=== PATIENT | male | born 1980 | race Caucasian/White ===

== ENCOUNTER 2016-06-27 01:00 | Emergency (ER) | payer OTHER, MEDICAID ==
[~2016-06-27] VITALS: Ht 170.2 cm; Wt 138.8 kg
[2016-06-27] MEDS ORDERED: METF10002 PO (01:53)
[2016-06-27] MEDS ORDERED: LISI-170 PO (01:54)
[2016-06-27] MEDS ORDERED: SIMV5TAB5 PO (01:54)
[2016-06-27] MEDS ORDERED: GLYB5TAB3 PO (01:54)
[2016-06-27] MEDS ORDERED: ONDANSETRON ODT 8 MG ONE (01:58)
[2016-06-27] MEDS ORDERED: PROCHLORPERAZINE 5 MG/ML, 2ML ONE (01:58)
[2016-06-27] MEDS ORDERED: ONDANSETRON ODT 8 MG PO ONE (02:00)
[2016-06-27] MEDS ORDERED: PROCHLORPERAZINE 5 MG/ML, 2ML IM ONE (02:00)
[2016-06-27] MEDS ORDERED: GLUCAGON 1 MG IVPush ONE (03:00)
[2016-06-27] MEDS ORDERED: SODIUM CHLORIDE FLUSH 10ML SYR IVF ONE (03:00)
[2016-06-27] MEDS ORDERED: SODIUM CHLORIDE 0.9% 1,000ML IVBOLUS ONE (03:00)
[2016-06-27] MEDS ORDERED: GLUCAGON 1 MG ONE (03:00)
[2016-06-27] MEDS ORDERED: FENTANYL PF 100 MCG/2ML ONE ×2 (06:03→06:32)
[2016-06-27] MEDS ORDERED: MIDAZOLAM 1 MG/ML, 5ML ONE ×2 (06:03→06:09)
[2016-06-27] MEDS ORDERED: PROPOFOL 10 MG/ML, 20ML ONE (06:40)
[2016-06-27] MEDS ORDERED: FENTANYL PF 100 MCG/2ML IVPush ONE (07:00)
[2016-06-27] MEDS ORDERED: PROPOFOL 10 MG/ML, 20ML IVPush ONE (07:00)
[2016-06-27] MEDS ORDERED: MIDAZOLAM 1 MG/ML, 5ML IVPush ONE (07:00)
[2016-06-27 07:25] VITALS: BP 127/61
== END 2016-06-27 08:01 | disposition home or self-care (01) ==
LOC: ED 04:21
DX: T18.128A Food in esophagus causing other injury, initial encounter (principal); E11.9 Type 2 diabetes mellitus without complications; I10 Essential (primary) hypertension; W56.52XA Struck by other fish, initial encounter; Y93.89 Activity, other specified; Y92.89 Other specified places as the place of occurrence of the external cause; Y99.8 Other external cause status
CPT/HCPCS: 43247; 74220; 88305; 93005; 96361; 96372; 96374; 96375; 99285; J0780; J1610; J2250; J2704; J3010; J7030; Q0162